=== PATIENT | male | born 1960 | race African-American/Black ===

== ENCOUNTER 2018-09-20 15:45 | Inpatient (IN) | payer SELFPAY ==
--- NOTE | 2018-09-20 19:05 | HP ---
TIME OF SERVICE: 1700 hours. PRIMARY CARE PHYSICIAN: Dr. Kristopher Ahumada. CHIEF COMPLAINT: "I can't pee." HISTORY OF PRESENT ILLNESS: Mr. Carr is a 58-year-old male with history of BPH, diabetes mellitus type 2. He was seen here in the emergency department 2 to 2-1/2 weeks ago for urinary retention. At that time, a Cope catheter was placed and he was sent out with a leg bag. He followed with the [facility] urologist about 5 days later; at which time, he was on Flomax and the catheter was removed. He was sent home. Since that time, the patient has had increasing problems with urinating. His urine has remained blood-tinged and ultimately could not pee today and developed lower abdominal pain. Came to the emergency department for evaluation. He denies any fevers or chills. No chest pain or shortness of breath. No nausea or vomiting. He was initially placed on antibiotics for the first 10 days with Cipro and subsequently he has been on Bactrim, he thinks. Workup in the ER today showed a creatinine of 9.96 with a BUN of 96. In the initial ER prior to transfer, his creatinine was 15.10. There are no other current complaints. PAST MEDICAL HISTORY: 1. BPH. 2. Diabetes mellitus, type 2. PAST SURGICAL HISTORY: None. MEDICATIONS: 1. Januvia. 2. Flomax. 3. Dutasteride. 4. Multivitamin. 5. Docusate. 6. Cipro. 7. Bactrim. ALLERGIES: PENICILLIN. FAMILY HISTORY: Negative for clotting or bleeding disorder. No immune dysfunction. SOCIAL HISTORY: Negative habits x3. REVIEW OF SYSTEMS: All systems reviewed and negative except as stated in the HPI. PHYSICAL EXAMINATION: VITAL SIGNS: Temperature 97.5, pulse 114, blood pressure 134/81, respiratory rate 16, and saturating 100% on room air. GENERAL: He is awake. He is alert. He is oriented x3. Well developed, well nourished, male, who appears to be in no distress. HEENT: Normocephalic and atraumatic. Pupils are equal, round, reactive to light bilaterally. Mucous membranes are moist. No visible lesion. No thrush. NECK: Supple. There is no lymphadenopathy, JVD, or thyromegaly. No carotid upstroke. There are no bruits. LUNGS: Clear. No wheezes, rales, or rhonchi. Good air movement. Symmetric chest excursion. CARDIOVASCULAR: Normal S1 and S2. No S3 or S4. No audible murmurs. ABDOMEN: Soft, nontender, nondistended. No suprapubic tenderness. No CVA tenderness. SKIN: Warm, moist, well perfused. There are no rash or lesions. EXTREMITIES: No cyanosis or clubbing. No edema. MUSCULOSKELETAL: Normal to inspection. Large joints appear normal. There is no evidence of inflammation or palpable effusions. NEUROLOGIC: Cranial nerves 2 through 12 are grossly intact. No focal neurologic deficits. LABORATORY DATA: Sodium 138, potassium 5.7, down from 6.6, chloride 105, bicarb 18, BUN 96, creatinine 9.96, down from 15.10, glucose 182, and calcium 103. Liver function normal. CBC showed a white count 11.3 with normal differential, hemoglobin 7.4, platelet count is 249,000. ASSESSMENT AND PLAN: 1. Benign prostatic hyperplasia with outlet obstruction. 2. Acute kidney injury secondary to post-renal obstruction. 3. Diabetes mellitus, type 2. 4. Hyperkalemia, improved with calcium chloride and bicarbonate and insulin glucose. I have notify, Dr. Velez of the admission. We will continue to monitor potassium closely. We will continue the Cope catheter Urology to evaluate in the morning. We will continue to hold the Januvia at present. We will use a sliding scale insulin, put him on a diabetic diet. We are going to let him eat. Job ID: [id number]
[2018-09-20 19:14] VITALS: BMI 25.4
[2018-09-20] MEDS ORDERED: Dextrose 50% Abboject 50 ML SYRINGE SLOW IVP PRN (19:25)
[2018-09-20] MEDS ORDERED: Sodium Chloride 0.9% 1,000 ML IV SCH (19:25)
[2018-09-20] MEDS ORDERED: Ondansetron ODT 4 MG TAB PO PRN (19:25)
[2018-09-20] MEDS ORDERED: Ondansetron PF 4 MG/2 ML Vial IVP PRN (19:25)
[2018-09-20] MEDS ORDERED: Acetaminophen 325 MG TAB PO PRN (19:25)
[2018-09-20] MEDS ORDERED: Dextrose 5% in Water 1,000 ML IV PRN (19:25)
[2018-09-20] MEDS ORDERED: Acetaminophen 650 MG Suppository PR PRN (19:25)
[2018-09-20] MEDS: Insulin Regular 300 UNITS/3 ML VIAL SC PRN (21:13)
[2018-09-20] MEDS: Tamsulosin HCl 0.4 MG CAP PO SCH (21:14)
[2018-09-20] MEDS: Sodium Bicarbonate 75 MEQ in Sodium Chloride 0.45% 1,000 ML IV SCH (21:14)
--- NOTE | 2018-09-21 01:49 | CON ---
DATE OF CONSULTATION: CONSULTING PHYSICIAN: Sarina Velez MD REQUESTING PHYSICIAN: ER physician. REASON FOR CONSULTATION: Acute kidney injury as well as severe hyperkalemia. IMPRESSION: 1. Acute kidney injury in the context of obstructive uropathy. 2. Hyperkalemia related to problem #1. 3. Metabolic acidosis. 4. Baseline chronic kidney disease, query level. 5. Benign prostatic hypertrophy. PLAN: 1. The patient will benefit from Urology consultation/intervention possibly transurethral resection of prostate. 2. Monitor the electrolyte closely especially, as the patient goes into postobstructive diuretic phase. 3. Renally dose all medications and avoid potentially nephrotoxic agents. 4. Further management will be dependent on the clinical course. 5. Hopefully, the hyperkalemia will improve so that there would not be any emergent indication for renal replacement therapy. HISTORY OF PRESENT ILLNESS: This is a 58-year-old gentleman, who presented about 2 weeks ago to ER with obstruction. Cope catheter was placed with a plan to follow up with Urology. After about a week of Cope catheterization, this was discontinued; however, ever since then, the patient has not been able to urinate. The patient continues to accumulate the urine leading up to suprapubic pain, constipation, and abdominal discomfort, for which the patient presented back to the ER and after Cope catheterization, about 2 L of urine was drained. The patient noted with a creatinine of above 15 and potassium of 6. As a result of these findings, decision has been taken to involve Renal in the management of this case. PAST MEDICAL HISTORY: According to the patient is significant for diabetes. MEDICATIONS: Reviewed and documented on [facility]. ALLERGIES: TO PENICILLIN. FAMILY HISTORY: No family history of kidney disease. SOCIAL HISTORY: The patient denies illicit drug use, alcohol, or tobacco. REVIEW OF SYSTEMS: As documented in the body of the history. All other systems were reviewed and found not to be significantly related to present illness. PHYSICAL EXAMINATION: GENERAL: The patient was found not to be in any acute distress. Hemodynamically stable. Afebrile. HEENT: Examination unremarkable. CARDIOVASCULAR SYSTEM: First and second heart sounds were heard. RESPIRATORY SYSTEM: Clear to auscultation. DIGESTIVE SYSTEM: Revealed a benign abdomen with positive bowel sounds. EXTREMITIES: No peripheral edema. SKIN: No new bruise or rash. LYMPHATICS: No peripheral lymphadenopathy. SUMMARY: A 58-year-old gentleman who presented as a transfer from [facility] with obstructive uropathy. Thank you for this consultation. We will follow with you. Job ID: [id number]
[2018-09-21 05:45] LABS: Albumin 3.4 g/dL (3.5-5.0); Anion Gap 14 mmol/L (10-20); BUN (Urea Nitrogen) 59 mg/dL (8.4-25.7); BUN/Creatinine Ratio 10.77; Calc. Creatinine Clearance 17 mL/min (70-130); Calcium 9.8 mg/dL (7.8-10.44); Carbon Dioxide 25 mmol/L (22-29); Chloride 106 mmol/L (98-107); Estimated GFR-MDRD 13; Glucose 200 mg/dL (70-105); Phosphorus 5.3 mg/dL (2.3-4.7); Sodium 138 mmol/L (136-145)
[2018-09-21 05:50] LABS: Potassium 6.9 mmol/L (3.5-5.1)
[2018-09-21] MEDS ORDERED: Calcium Gluconate 4.6 MEQ in Sodium Chloride 0.9% 100 ML IVPB SCH (06:05)
[2018-09-21 06:36] LABS: Elliptocytes SLIGHT = 2-5 cells (100X) (0-1/hpf); Eosinophils 1 % (0-10); Hemoglobin 9.8 g/dL (14.0-18.0); Lymphocytes 5 % (21-51); MDiff Complete? YES; Mean Corpuscular HGB CONC 33.3 g/dL (32.0-36.0); Mean Corpuscular Hemoglobin 29.5 pg (27.0-31.0); Mean Corpuscular Volume 88.7 fL (78.0-98.0); Mean Platelet Volume 8.5 fL (7.4-10.4); Monocytes 16 % (0-10); Neutrophil 78 % (42-75); Platelet Count 253 thou/uL (130-400); RBC Distribution Width 12.6 % (11.5-14.5); Red Blood Cell (RBC) Count 3.31 mill/uL (4.70-6.10); Schistocytes SLIGHT = 2-5 cells (100X) (0-1/hpf); White Blood Cell (WBC) Count 11.1 thou/uL (4.8-10.8)
[2018-09-21] MEDS: Dutasteride 0.5 MG CAP PO SCH (09:40)
[2018-09-21 11:36] LABS: Potassium 6.5 mmol/L (3.5-5.1)
[2018-09-21 12:25] LABS: Potassium 5.6 mmol/L (3.5-5.1)
--- NOTE | 2018-09-21 13:25 | PDOC.PN ---
- Subjective Encounter Start Date: 09/21/18 Encounter Start Time: 11:00 pt feeling better now, earlier love stopped draining, flushed by nrses, increased blood in urine. Urology following No F/c, no N/V/d/c. elevated K+ this AM, Cr improving, case discussed with Dr Velez No f/c, no N/V/D/C, no CP or SOB, some dysuria All systems reviewed and neg x as above - Objective Resuscitation Status - Order Detail: 09/20/18 17:47 Resuscitation Status Routine Resuscitation Status: FULL: Full Resuscitation MAR Reviewed: Yes Vital Signs & Weight: Vital Signs (12 hours) Temp Pulse Resp BP Pulse Ox 09/21/18 12:15 98.4 F 100 16 141/70 H 99 09/21/18 08:02 98.6 F 104 H 18 145/74 H 100 09/21/18 04:00 99.6 F 112 H 18 143/74 H 99 Weight Weight 177 lb 9.6 oz I&O: 09/20/18 09/21/18 09/22/18 06:59 06:59 06:59 Intake Total 1306 Output Total 550 Balance 756 Result Diagrams: 09/21/18 05:02 09/21/18 12:00 Additional Labs: Accuchecks 09/21/18 09/20/18 09/20/18 06:18 23:54 20:37 POC Glucose 189 H 287 H 431 H Phys Exam - Physical Examination Constitutional: NAD HEENT: PERRLA, moist MMs, sclera anicteric, oral pharynx no lesions Neck: no nodes, no JVD, supple, full ROM Respiratory: no wheezing, no rales, no rhonchi Cardiovascular: RRR, no significant murmur, no rub Gastrointestinal: soft, non-tender, no distention, positive bowel sounds Musculoskeletal: no edema Neurological: non-focal, normal sensation, moves all 4 limbs Lymphatic: no nodes Psychiatric: normal affect, A&O x 3 Skin: no rash, normal turgor, cap refill <2 seconds Dx/Plan (1) BPH NOS w ur obs/LUTS Code(s): N40.1 - BENIGN PROSTATIC HYPERPLASIA WITH LOWER URINARY TRACT SYMP Status: Acute (2) Hematuria Code(s): R31.9 - HEMATURIA, UNSPECIFIED Status: Acute Qualifiers: Hematuria type: gross Qualified Code(s): R31.0 - Gross hematuria (3) HTN (hypertension) Code(s): I10 - ESSENTIAL (PRIMARY) HYPERTENSION Status: Chronic Qualifiers: Hypertension type: essential hypertension Qualified Code(s): I10 - Essential (primary) hypertension (4) DM2 (diabetes mellitus, type 2) Status: Chronic Qualifiers: Diabetes mellitus halfway insulin use: without halfway use Diabetes mellitus complication status: without complication Qualified Code(s): E11.9 - Type 2 diabetes mellitus without complications - Plan cont current plan of care * . follow up urology recs, follow up renal for SIENA due to obstruction. hyperkalemia back up today, Renal following
[2018-09-21] MEDS: Sodium Bicarbonate 75 MEQ in Sodium Chloride 0.45% 1,000 ML IV SCH (14:49)
[2018-09-21 18:54] LABS: Hemoglobin 8.8 g/dL (14.0-18.0)
[2018-09-21] MEDS: Insulin Regular 300 UNITS/3 ML VIAL SC PRN ×2 (19:02→20:41)
--- NOTE | 2018-09-21 19:46 | PRG ---
DATE OF SERVICE: 09/21/2018 SUBJECTIVE: The patient is seen and examined with no new complaints except the difficulty with emptying the bladder overnight, for which Cope catheter was exchanged. The patient is still continued with gross hematuria, noted with the following vital signs. OBJECTIVE: VITAL SIGNS: Afebrile. Temperature 98.5, pulse 98, respiratory rate of 18, O2 sat of 98% with blood pressure 138/72. HEENT: Unremarkable. CARDIOVASCULAR SYSTEM: First and second heart sounds were heard. RESPIRATORY SYSTEM: Clear to auscultation. DIGESTIVE SYSTEM: Revealed a benign abdomen with positive bowel sounds. EXTREMITIES: No peripheral edema. SKIN: No new gross rash. LYMPHATICS: No peripheral lymphadenopathy. LABORATORY INVESTIGATION: Showed a potassium of 6.9, however, a repeat came back as 5.6 and creatinine of 5.14. IMPRESSION: 1. Severe acute kidney injury in the context of obstructive uropathy. 2. Obstructive uropathy. 3. Hyperkalemia. 4. Metabolic acidosis seems to have resolved. PLAN: 1. Kayexalate treatment. 2. Repeat the potassium level later in the day. If the potassium is dropping down, we will hold off, otherwise if the potassium is still rising, the patient will undergo hemodialysis. 3. Renally dose all medications and avoid potentially nephrotoxic agents. 4. We will continue to monitor this patient's electrolyte closely and make decisions accordingly. 5. The patient will benefit from urologic intervention. Job ID: [id number]
[2018-09-21] MEDS: Tamsulosin HCl 0.4 MG CAP PO SCH (20:38)
--- NOTE | 2018-09-21 21:09 | CON ---
DATE OF CONSULTATION: 09/21/2018 TYPE OF CONSULTATION: Urology Inpatient. REASON FOR CONSULTATION: Urinary retention and gross hematuria. HISTORY OF PRESENT ILLNESS: Mr. Carr is a 58-year-old male with history of BPH with bladder outlet obstruction. I saw him as a new patient consult as an outpatient last week. He was seen in followup from the ER, at which point, a Cope catheter was placed for urinary retention. The patient was placed on Flomax. He passed a voiding trial last week in the office. He has a history of BPH and has been taking tamsulosin for a couple of years. Secondary to lack of insurance, however, he was not completely compliant with the tamsulosin. He has seen Dr. Holman in the past as well. The patient reported progressive voiding difficulties since last week. He presented to the [place] [facility] and was found to have a creatinine of 15 and was found to be in urinary retention. A coude catheter was placed at that time and he had a very large postvoid residual. He was transferred to [facility] for further evaluation. His creatinine has been trending down appropriately. Nephrology has been monitoring for postobstructive diuresis. The patient developed hematuria this morning, requiring manual irrigation of his catheter. Urology was then called for further evaluation. REVIEW OF SYSTEMS: Full 12-point review of systems was performed and is negative other than that mentioned in the HPI. PAST MEDICAL HISTORY: 1. BPH. 2. Type 2 diabetes mellitus. PAST SURGICAL HISTORY: None. MEDICATIONS: 1. Januvia. 2. Flomax. 3. Dutasteride. 4. Multivitamin. 5. Docusate. FAMILY HISTORY: Noncontributory. SOCIAL HISTORY: The patient has significant smoking history, reports he quit a couple of years ago. ALLERGIES: PENICILLIN. PHYSICAL EXAMINATION: VITAL SIGNS: Temperature 98.4, heart rate 100, respirations 16, oxygen saturation 99% on room air, and blood pressure 141/70. GENERAL: He is alert and oriented x3, in no apparent distress. HEENT: Normocephalic, atraumatic. NECK: Supple, no masses or lymphadenopathy. CARDIOVASCULAR: Regular rate and rhythm. PULMONARY: Breathing unlabored. ABDOMEN: Soft, nontender, nondistended. No masses or organomegaly. No suprapubic tenderness to palpation. No CVA tenderness. GENITOURINARY: Uncircumcised penis without concerning lesion. Scrotum and testes palpably normal. Cope catheter in place draining blood-tinged urine. EXTREMITIES: Warm and well perfused, no edema. NEUROLOGIC: No focal deficits. LABORATORY DATA: Hemoglobin 9.8, hematocrit 29.4. Sodium 138, potassium 5.6, chloride 106, bicarb 25, BUN 59, and creatinine 5.48. ASSESSMENT: A 58-year-old male with benign prostatic hyperplasia, bladder outlet obstruction, acute kidney injury secondary to bladder outlet obstruction. PLAN: The patient's kidney function is improving. His urine output is improving as well. He has significant hematuria likely secondary to BPH in the setting of recent Cope catheter placement. He reports, in [place], there was some difficulty placing the catheter. I manually irrigated his existing Cope catheter and irrigated some clot out of his bladder. I would like to exchange his catheter, so under sterile conditions, I exchanged this to a 20-Norwegian 3-way Cope catheter. I manually irrigated this and there was no residual clot within the bladder. Continuous bladder irrigation was initiated and on moderate to high rate CBI, his urine was alcantara colored. This was monitored and appeared to be clearing. Continue CBI for now. The patient will likely require a procedure for his obstructing prostate. He has a very large prostate on exam. Ideally, if his hematuria is controlled, we will work him up a little better as an outpatient and perform this as an outpatient. However, if his hematuria does not improve, he may require a cystoscopy with clot evacuation and possible TURP while he is here. I discussed this plan with the patient and he understands. Thank you for allowing me to participate in the care of this patient. Job ID: [id number]
[2018-09-21] MEDS: Sodium Bicarbonate 50 MEQ in Sodium Chloride 0.45% 1,000 ML IV SCH (21:41)
[2018-09-22 05:58] LABS: #Basophils 0.1 thou/uL (0.0-0.2); #Eosinphils 0.4 thou/uL (0.0-0.7); #Lymphocytes 2.3 thou/uL (1.20-3.40); #Monocytes 1.4 thou/uL (0.11-0.59); #Neutrophils 6.7 thou/uL (1.40-6.50); %Basophils 0.6 % (0.0-1.0); %Eosinophils 3.4 % (0.0-10.0); %Lymphocytes 21.5 % (21.0-51.0); %Monocytes 12.9 % (0.0-10.0); %Neutrophils 61.7 % (42.0-75.0); Hemoglobin 7.9 g/dL (14.0-18.0); Mean Corpuscular HGB CONC 32.2 g/dL (32.0-36.0); Mean Corpuscular Hemoglobin 29.3 pg (27.0-31.0); Mean Corpuscular Volume 91.2 fL (78.0-98.0); Mean Platelet Volume 8.2 fL (7.4-10.4); Platelet Count 252 thou/uL (130-400); RBC Distribution Width 12.6 % (11.5-14.5); Red Blood Cell (RBC) Count 2.69 mill/uL (4.70-6.10); White Blood Cell (WBC) Count 10.8 thou/uL (4.8-10.8)
[2018-09-22 06:11] LABS: Anion Gap 10 mmol/L (10-20); BUN (Urea Nitrogen) 17 mg/dL (8.4-25.7); Calc. Creatinine Clearance 91 mL/min (70-130); Calcium 8.8 mg/dL (7.8-10.44); Carbon Dioxide 28 mmol/L (22-29); Chloride 104 mmol/L (98-107); Estimated GFR-MDRD Greater than 90; Glucose 276 mg/dL (70-105); Magnesium 1.4 mg/dL (1.6-2.6); Potassium 4.4 mmol/L (3.5-5.1); Sodium 138 mmol/L (136-145)
[2018-09-22] MEDS: Dutasteride 0.5 MG CAP PO SCH (08:26)
[2018-09-22] MEDS: Insulin Regular 300 UNITS/3 ML VIAL SC PRN ×4 (09:23→21:18)
[2018-09-22] MEDS ORDERED: Magnesium 2 GM/50 ML 2 GM in Premix Bag 1 BAG IVPB SCH (11:30)
[2018-09-22] MEDS: Sodium Bicarbonate 50 MEQ in Sodium Chloride 0.45% 1,000 ML IV SCH (11:32)
--- NOTE | 2018-09-22 14:29 | PRG ---
DATE OF SERVICE: 09/22/2018 SUBJECTIVE: Overnight, the patient has been doing relatively well. He required manual Cope catheter irrigation x2 with minimal clot irrigated out. His Cope catheter has been somewhat positional. The rate of drainage varies based on his position. Yesterday, when I saw the patient, I did not realize he had a CT scan performed in [place]. This was reviewed, and at that time, his CT was performed there. The Cope catheter balloon had been inflated in his prostatic urethra. The patient reports that they manipulated the Cope catheter and then it began draining and he was transferred here. Since his Cope catheter was exchanged yesterday, he has had no lower abdominal discomfort. On the CT scan, there was a significant amount of clot within the bladder and this was irrigated out as well. His prostate is massively enlarged on CT as well. OBJECTIVE: VITAL SIGNS: Temperature 99.1, heart rate 111, respirations 14, oxygen saturation 99% on room air, blood pressure 127/71, pulse 101 to 119 over the past 10 hours. GENERAL: He is alert and oriented x3, in no apparent distress. CARDIOVASCULAR: Tachycardic, but regular. ABDOMEN: Soft, nontender/nondistended. No suprapubic fullness or tenderness to palpation. No CVA tenderness. GENITOURINARY: Three-way Cope catheter is in place, draining pink urine on moderate rate CBI. RADIOLOGY DATA: CT of abdomen and pelvis from 09/20/2018: See scan report, films reviewed. ASSESSMENT: A 58-year-old male with urinary retention, massive benign prostatic hypertrophy with bilateral obstruction, gross hematuria, acute kidney injury. PLAN: The patient's creatinine has improved. His acute kidney injury has resolved. He continues to have intermittent gross hematuria. His hemoglobin dropped down to 7.9 constituting acute blood loss anemia. He is being transfused per the Hospitalist at this point. I reviewed the patient's CT findings with him in detail. I explained his hematuria is likely secondary to the Cope trauma and inflating the balloon in the prostatic urethra. The patient's prostate volume is likely well greater than 120 gram based on estimated volume by CT. I explained that this would likely present challenges of performing traditional transurethral resection of the prostate. I have discussed other options including suprapubic prostatectomy. Given the very large size of the gland, this is likely what he will require. He may end up needing to stay in the hospital until that time and that would not likely be performed until next week, given relatively large nature of the surgery. Until then, we will continue CBI and manual irrigation of his Cope catheter as necessary and continue to monitor his H and H. Job ID: [id number] MTDD
--- NOTE | 2018-09-22 16:18 | PRG ---
DATE OF SERVICE: 09/22/2018 SUBJECTIVE: The patient was seen and examined, seems to be doing much better. There is still gross hematuria noted, with the following vital signs. OBJECTIVE: VITAL SIGNS: Afebrile, temperature 98.3, respiratory rate 16, pulse 98, and blood pressure 126/72. HEENT: As mentioned, unremarkable. CARDIOVASCULAR: First and second heart sounds were heard. RESPIRATORY: Clear to auscultation. DIGESTIVE: Revealed a benign abdomen with positive bowel sounds. EXTREMITIES: No peripheral edema. SKIN: As mentioned, no new gross rash. LYMPHATICS: No peripheral lymphadenopathy. LABORATORY INVESTIGATION: Significant for hemoglobin of 7.9. Creatinine is down to 0.92, BUN of 17, and magnesium 1.4. IMPRESSION: 1. Acute kidney injury, which has greatly improved, status post . 2. Obstructive uropathy. 3. Benign prostatic hypertrophy. 4. Hypomagnesemia. PLAN: 1. Replete magnesium. 2. Urology following the patient and I do strongly suggest having the patient undergo treatment here versus outpatient given the questionable compliance. Job ID: [id number]
[2018-09-22 19:49] LABS: Hemoglobin 9.4 g/dL (14.0-18.0)
[2018-09-22] MEDS: Tamsulosin HCl 0.4 MG CAP PO SCH (20:15)
[2018-09-23] MEDS: Sodium Bicarbonate 50 MEQ in Sodium Chloride 0.45% 1,000 ML IV SCH ×2 (00:55→17:57)
[2018-09-23 05:21] LABS: #Basophils 0.1 thou/uL (0.0-0.2); #Eosinphils 0.6 thou/uL (0.0-0.7); #Lymphocytes 2.1 thou/uL (1.20-3.40); #Monocytes 1.5 thou/uL (0.11-0.59); #Neutrophils 8.9 thou/uL (1.40-6.50); %Basophils 0.9 % (0.0-1.0); %Eosinophils 4.3 % (0.0-10.0); %Monocytes 11.4 % (0.0-10.0); %Neutrophils 67.4 % (42.0-75.0); Hemoglobin 8.6 g/dL (14.0-18.0); Mean Corpuscular HGB CONC 32.4 g/dL (32.0-36.0); Mean Corpuscular Hemoglobin 28.9 pg (27.0-31.0); Mean Corpuscular Volume 89.1 fL (78.0-98.0); Mean Platelet Volume 7.8 fL (7.4-10.4); Platelet Count 289 thou/uL (130-400); RBC Distribution Width 14.1 % (11.5-14.5); Red Blood Cell (RBC) Count 2.97 mill/uL (4.70-6.10); White Blood Cell (WBC) Count 13.2 thou/uL (4.8-10.8)
[2018-09-23 05:39] LABS: Anion Gap 9 mmol/L (10-20); BUN (Urea Nitrogen) 12 mg/dL (8.4-25.7); Calc. Creatinine Clearance 107 mL/min (70-130); Calcium 8.7 mg/dL (7.8-10.44); Carbon Dioxide 28 mmol/L (22-29); Chloride 105 mmol/L (98-107); Estimated GFR-MDRD Greater than 90; Glucose 241 mg/dL (70-105); Magnesium 1.7 mg/dL (1.6-2.6); Potassium 4.2 mmol/L (3.5-5.1); Sodium 138 mmol/L (136-145)
[2018-09-23] MEDS: Dutasteride 0.5 MG CAP PO SCH (09:57)
[2018-09-23] MEDS: Insulin Regular 300 UNITS/3 ML VIAL SC PRN ×3 (09:58→15:58)
--- NOTE | 2018-09-23 15:46 | PDOC.PN ---
- Subjective Encounter Start Date: 09/22/18 Encounter Start Time: 13:00 -: non-verbal Cr normalized. still bleeding No f/c, no N/V/D/C, no CP or SOB, some dysuria to OR soon for prostate resection if bleeding doesnt slow All systems reviewed and neg x as above - Objective Resuscitation Status - Order Detail: 09/20/18 17:47 Resuscitation Status Routine Resuscitation Status: FULL: Full Resuscitation MAR Reviewed: Yes Vital Signs & Weight: Vital Signs (12 hours) Temp Pulse Resp BP Pulse Ox 09/23/18 12:45 98.7 F 115 H 20 119/74 99 09/23/18 08:05 98.5 F 92 20 134/72 99 Weight Weight 165 lb 1.6 oz I&O: 09/22/18 09/23/18 09/24/18 06:59 06:59 06:59 Intake Total 10656 2848 Output Total 28389 [id number] [facility] -[id number] [id number] Result Diagrams: 09/23/18 04:58 09/23/18 04:58 Additional Labs: Accuchecks 09/23/18 09/23/18 09/22/18 11:20 05:42 20:43 POC Glucose 261 H 237 H 381 H 09/22/18 09/22/18 09/22/18 16:56 13:11 11:10 POC Glucose 319 H 269 H 308 H 09/21/18 16:58 POC Glucose 222 H Phys Exam - Physical Examination Constitutional: NAD HEENT: PERRLA, moist MMs, sclera anicteric, oral pharynx no lesions Neck: no nodes, no JVD, supple, full ROM Respiratory: no wheezing, no rales, no rhonchi Cardiovascular: RRR, no significant murmur, no rub Gastrointestinal: soft, non-tender, no distention, positive bowel sounds Musculoskeletal: no edema, pulses present Neurological: non-focal, normal sensation, moves all 4 limbs Lymphatic: no nodes Psychiatric: normal affect, A&O x 3 Skin: no rash, normal turgor, cap refill <2 seconds Dx/Plan (1) BPH NOS w ur obs/LUTS Code(s): N40.1 - BENIGN PROSTATIC HYPERPLASIA WITH LOWER URINARY TRACT SYMP Status: Acute (2) Hematuria Code(s): R31.9 - HEMATURIA, UNSPECIFIED Status: Acute Qualifiers: Hematuria type: gross Qualified Code(s): R31.0 - Gross hematuria (3) HTN (hypertension) Code(s): I10 - ESSENTIAL (PRIMARY) HYPERTENSION Status: Chronic Qualifiers: Hypertension type: essential hypertension Qualified Code(s): I10 - Essential (primary) hypertension (4) DM2 (diabetes mellitus, type 2) Status: Chronic Qualifiers: Diabetes mellitus fci insulin use: without termite exterminator use Diabetes mellitus complication status: without complication Qualified Code(s): E11.9 - Type 2 diabetes mellitus without complications - Plan * .
--- NOTE | 2018-09-23 15:50 | PDOC.PN ---
- Subjective Encounter Start Date: 09/23/18 Encounter Start Time: 09:00 still bleeding to OR tomorrow for prostate resection No f/c, no N/V/D/C, no CP or SOB, some dysuria All systems reviewed and neg x as above - Objective Resuscitation Status - Order Detail: 09/20/18 17:47 Resuscitation Status Routine Resuscitation Status: FULL: Full Resuscitation MAR Reviewed: Yes Vital Signs & Weight: Vital Signs (12 hours) Temp Pulse Resp BP Pulse Ox 09/23/18 15:00 98.3 F 109 H 20 129/74 98 09/23/18 12:45 98.7 F 115 H 20 119/74 99 09/23/18 08:05 98.5 F 92 20 134/72 99 Weight Weight 165 lb 1.6 oz I&O: 09/22/18 09/23/18 09/24/18 06:59 06:59 06:59 Intake Total 18621 2848 Output Total 21110 [id number] [facility] -[id number] [id number] Result Diagrams: 09/23/18 04:58 09/23/18 04:58 Additional Labs: Accuchecks 09/23/18 09/23/18 09/22/18 11:20 05:42 20:43 POC Glucose 261 H 237 H 381 H 09/22/18 09/22/18 09/22/18 16:56 13:11 11:10 POC Glucose 319 H 269 H 308 H 09/21/18 16:58 POC Glucose 222 H Phys Exam - Physical Examination Constitutional: NAD HEENT: PERRLA, moist MMs, sclera anicteric, oral pharynx no lesions Neck: no nodes, no JVD, supple, full ROM Respiratory: no wheezing, no rales, no rhonchi, clear to auscultation bilateral Cardiovascular: RRR, no significant murmur, no rub Gastrointestinal: soft, non-tender, no distention, positive bowel sounds Musculoskeletal: no edema, pulses present Neurological: non-focal, normal sensation, moves all 4 limbs Lymphatic: no nodes Psychiatric: normal affect, A&O x 3 Skin: no rash, normal turgor, cap refill <2 seconds Dx/Plan (1) BPH NOS w ur obs/LUTS Code(s): N40.1 - BENIGN PROSTATIC HYPERPLASIA WITH LOWER URINARY TRACT SYMP Status: Acute (2) Hematuria Code(s): R31.9 - HEMATURIA, UNSPECIFIED Status: Acute Qualifiers: Hematuria type: gross Qualified Code(s): R31.0 - Gross hematuria (3) HTN (hypertension) Code(s): I10 - ESSENTIAL (PRIMARY) HYPERTENSION Status: Chronic Qualifiers: Hypertension type: essential hypertension Qualified Code(s): I10 - Essential (primary) hypertension (4) DM2 (diabetes mellitus, type 2) Status: Chronic Qualifiers: Diabetes mellitus shelter insulin use: without terminal clerk use Diabetes mellitus complication status: without complication Qualified Code(s): E11.9 - Type 2 diabetes mellitus without complications - Plan * .
--- NOTE | 2018-09-23 18:30 | PRG ---
DATE OF SERVICE: 09/23/2018 SUBJECTIVE: The patient is overall doing better. His CBI is running more clear. There is less hematuria. He received a unit of packed red blood cells yesterday. He denies any pain. No other complaints. OBJECTIVE: VITAL SIGNS: Temperature is 98.3, pulse 109, respirations 18, blood pressure 129/74, oxygen saturation 98% on room air. GENERAL: He is alert and oriented x3, in no apparent distress. HEENT: Normocephalic, atraumatic. CARDIOVASCULAR: Tachycardic, but regular. ABDOMEN: Soft, nontender/nondistended. LUNGS: Breathing unlabored. GENITOURINARY: Three-way Cope catheter in place, draining clear urine on moderate rate CBI. EXTREMITIES: Warm and well perfused. No edema. LABORATORY DATA: Hemoglobin 8.6, hematocrit 26.5. Creatinine 0.79. ASSESSMENT: A 58-year-old male with gross hematuria, acute blood loss anemia, benign prostatic hypertrophy with bladder outlet obstruction with massive prostate enlargement. PLAN: I reviewed the patient's clinic condition with him at length. I have discussed this with the operating room. The patient is scheduled for a suprapubic prostatectomy tomorrow morning. Given the large size of his prostate, I explained that this is likely the best option to alleviate both his bladder outlet obstruction, urinary retention, and gross hematuria rather than an endoscopic procedure. He understands this. This is scheduled for tomorrow morning. We will order type and cross, 2 units of packed red blood cells, n.p.o. after midnight. Job ID: [id number]
[2018-09-23] MEDS: Tamsulosin HCl 0.4 MG CAP PO SCH (20:31)
--- NOTE | 2018-09-23 20:35 | PRG ---
DATE OF SERVICE: 09/23/2018 SUBJECTIVE: The patient was seen and examined, seems to be doing much better and noted with the following vital signs OBJECTIVE: VITAL SIGNS: Afebrile, temperature 98.5, pulse 92, respiratory rate of 20, O2 saturation of 99%, with a blood pressure of 134/72. HEENT: Examination unremarkable. Moist oral mucosa. NECK: Supple. No conjunctival injection or icterus. CARDIOVASCULAR SYSTEM: First and second heart sounds were heard. RESPIRATORY SYSTEM: Clear to auscultation. DIGESTIVE SYSTEM: Revealed a benign abdomen with positive bowel sounds. EXTREMITIES: No peripheral edema. SKIN: No new gross rash. LYMPHATICS: No peripheral lymphadenopathy. LABORATORY INVESTIGATION: Showed a white count of 13,200, hemoglobin 8.6, and creatinine down to 0.79. IMPRESSION: 1. Acute kidney injury, resolved. 2. Obstructive uropathy. Undergoing urologic treatment. 3. Anemia in the context of acute blood loss. PLAN: 1. Continue current renal supportive measures. Avoid potential nephrotoxic agents. 2. Urologic intervention is highly anticipated. Job ID: [id number]
[2018-09-24 05:47] LABS: #Basophils 0.1 thou/uL (0.0-0.2); #Eosinphils 0.5 thou/uL (0.0-0.7); #Lymphocytes 2.2 thou/uL (1.20-3.40); #Monocytes 1.3 thou/uL (0.11-0.59); #Neutrophils 7.7 thou/uL (1.40-6.50); %Eosinophils 4.6 % (0.0-10.0); %Lymphocytes 18.7 % (21.0-51.0); %Monocytes 11.3 % (0.0-10.0); %Neutrophils 64.4 % (42.0-75.0); Hemoglobin 8.4 g/dL (14.0-18.0); Mean Corpuscular HGB CONC 32.2 g/dL (32.0-36.0); Mean Corpuscular Hemoglobin 28.8 pg (27.0-31.0); Mean Corpuscular Volume 89.4 fL (78.0-98.0); Mean Platelet Volume 7.4 fL (7.4-10.4); Platelet Count 337 thou/uL (130-400); RBC Distribution Width 14.2 % (11.5-14.5); Red Blood Cell (RBC) Count 2.93 mill/uL (4.70-6.10); White Blood Cell (WBC) Count 11.9 thou/uL (4.8-10.8)
[2018-09-24 05:58] LABS: Anion Gap 10 mmol/L (10-20); BUN (Urea Nitrogen) 8 mg/dL (8.4-25.7); Calc. Creatinine Clearance 117 mL/min (70-130); Calcium 8.6 mg/dL (7.8-10.44); Carbon Dioxide 27 mmol/L (22-29); Chloride 107 mmol/L (98-107); Estimated GFR-MDRD Greater than 90; Glucose 229 mg/dL (70-105); Magnesium 1.4 mg/dL (1.6-2.6); Potassium 3.7 mmol/L (3.5-5.1); Sodium 140 mmol/L (136-145)
[2018-09-24] MEDS ORDERED: Lidocaine 1% w/Epinephrine 1:100K 30 ML VIAL ONE (07:39)
[2018-09-24] MEDS ORDERED: Sodium Chloride 0.9% 10 ML ONE ×2 (07:39→08:32)
[2018-09-24] MEDS ORDERED: CEFAZOLIN 2 GM/50 ML BAG ONE (07:47)
[2018-09-24] MEDS ORDERED: Fentanyl 250 MCG/5 ML VIAL ONE (07:49)
[2018-09-24] MEDS: Sodium Bicarbonate 50 MEQ in Sodium Chloride 0.45% 1,000 ML IV SCH ×2 (07:59→16:07)
[2018-09-24] MEDS: Dutasteride 0.5 MG CAP PO SCH (08:24)
--- NOTE | 2018-09-24 08:58 | PRG ---
DATE OF SERVICE: 09/24/2018 SUBJECTIVE: The patient was seen in preop. He is scheduled for suprapubic prostatectomy this morning. He has had ongoing hematuria. His hemoglobin was 8.4, hematocrit 26.2 as of this morning. No other complaints. OBJECTIVE: VITAL SIGNS: Temperature 99.6, pulse 99, respirations 16, oxygen saturation 98% on room air, and blood pressure 165/77. GENERAL: Alert and oriented x3, no apparent distress. CARDIOVASCULAR: Regular rate and rhythm. PULMONARY: Breathing unlabored. ABDOMEN: Soft, nontender/nondistended. GENITOURINARY: Three-way Cope catheter in place, draining blood-tinged urine on low rate CBI. ASSESSMENT: A 58-year-old male with acute blood loss anemia; acute kidney injury, now resolved; BPH with bladder outlet obstruction, had gross hematuria secondary to Cope trauma and massive BPH. PLAN: The patient continues to have hematuria. His prostate is very large, likely greater than [address] volume. The options have been discussed with the patient. After indications/risks/benefits/alternatives/possible outcomes were discussed with the patient in detail, he elects to proceed with suprapubic prostatectomy and all indicated procedures. He has 3 units of packed red blood cells on whole given his acute blood loss anemia. Right now, he is hemodynamically stable, and his H and H are stable. Job ID: [id number]
[2018-09-24] MEDS ORDERED: Magnesium 2 GM/NS 0.9% 100 ML 4 GM in Premix Bag 1 BAG IVPB SCH (09:15)
[2018-09-24] MEDS ORDERED: Magnesium Sulfate 4 GM in Sodium Chloride 0.9% 250 ML 250 ML IVPB SCH (09:30)
[2018-09-24] MEDS ORDERED: Insulin Regular 300 UNITS/3 ML VIAL ONE (09:48)
[2018-09-24] MEDS ORDERED: Promethazine HCl 25 MG/ML VIAL SLOW IVP PRN (10:40)
[2018-09-24] MEDS ORDERED: Promethazine HCl 25 MG/ML VIAL IM PRN (10:40)
[2018-09-24] MEDS ORDERED: Ondansetron HCl/PF 4 MG/2 ML Vial IVP PRN (10:40)
[2018-09-24] MEDS ORDERED: Fentanyl 100 MCG/2 ML VIAL ONE ×3 (10:45→12:08)
[2018-09-24] MEDS ORDERED: Morphine 2 MG/ML SYRINGE SLOW IVP PRN (11:51)
[2018-09-24] MEDS ORDERED: Oxybutynin 5 MG TAB PO PRN (11:54)
[2018-09-24] MEDS ORDERED: Ondansetron PF 4 MG/2 ML Vial IVP PRN (11:54)
[2018-09-24] MEDS ORDERED: CEFAZOLIN 1 GM in Sodium Chloride 0.9% 100 ML IVPB SCH (14:00)
[2018-09-24] MEDS: HYDROcodone/Acetaminophen 10/325 mg Tablet PO PRN (14:45)
--- NOTE | 2018-09-24 15:06 | PDOC.PN ---
- Subjective Encounter Start Date: 09/24/18 Encounter Start Time: 13:00 to OR this morning for prostatectomy, no complications, feeling okay No f/c, no N/V/D/C, no CP or SOB, some dysuria All systems reviewed and neg x as above - Objective Resuscitation Status - Order Detail: 09/20/18 17:47 Resuscitation Status Routine Resuscitation Status: FULL: Full Resuscitation MAR Reviewed: Yes Vital Signs & Weight: Vital Signs (12 hours) Temp Pulse Resp BP Pulse Ox 09/24/18 04:00 99.6 F 99 16 165/77 H 98 Weight Weight 165 lb 1.6 oz I&O: 09/23/18 09/24/18 09/25/18 06:59 06:59 06:59 Intake Total 2848 2210 Output Total 9371 7602 [id number] -6620 Result Diagrams: 09/24/18 05:23 09/24/18 05:23 Additional Labs: Accuchecks 09/24/18 09/24/18 09/24/18 11:43 10:39 09:46 POC Glucose 162 H 230 H 256 H 09/23/18 09/23/18 21:03 15:55 POC Glucose 258 H 406 H Phys Exam - Physical Examination Constitutional: NAD HEENT: PERRLA, moist MMs, sclera anicteric, oral pharynx no lesions Neck: no nodes, no JVD, supple, full ROM Respiratory: no wheezing, no rales, no rhonchi, clear to auscultation bilateral Cardiovascular: RRR, no significant murmur, no rub Gastrointestinal: soft, non-tender, no distention, positive bowel sounds Musculoskeletal: no edema, pulses present Neurological: non-focal, normal sensation, moves all 4 limbs Lymphatic: no nodes Psychiatric: normal affect, A&O x 3 Skin: no rash, normal turgor, cap refill <2 seconds Dx/Plan (1) BPH NOS w ur obs/LUTS Code(s): N40.1 - BENIGN PROSTATIC HYPERPLASIA WITH LOWER URINARY TRACT SYMP Status: Acute Comment: S/P prostatectomy (2) Hematuria Code(s): R31.9 - HEMATURIA, UNSPECIFIED Status: Acute Qualifiers: Hematuria type: gross Qualified Code(s): R31.0 - Gross hematuria Comment: better, CBI post op (3) HTN (hypertension) Code(s): I10 - ESSENTIAL (PRIMARY) HYPERTENSION Status: Chronic Qualifiers: Hypertension type: essential hypertension Qualified Code(s): I10 - Essential (primary) hypertension (4) DM2 (diabetes mellitus, type 2) Status: Chronic Qualifiers: Diabetes mellitus fci insulin use: without fci use Diabetes mellitus complication status: without complication Qualified Code(s): E11.9 - Type 2 diabetes mellitus without complications - Plan * .
[2018-09-24 15:46] LABS: Hemoglobin 9.8 g/dL (14.0-18.0)
--- NOTE | 2018-09-24 15:53 | OP ---
DATE OF PROCEDURE: 09/24/2018 SERVICE: Urology. ALUM MIXER: Cesar Anderson MD PREPROCEDURE DIAGNOSES: 1. Benign prostatic hypertrophy with bladder outlet obstruction, massive. 2. Gross hematuria with clot urinary retention. 3. Acute kidney injury, now resolved. 4. Acute blood loss anemia. POSTPROCEDURE DIAGNOSES: 1. Benign prostatic hypertrophy with bladder outlet obstruction, massive. 2. Gross hematuria with clot urinary retention. 3. Acute kidney injury, now resolved. 4. Acute blood loss anemia. PROCEDURE PERFORMED: Suprapubic prostatectomy. ANESTHESIA: General endotracheal anesthesia. FLUIDS: See Anesthesia record. 2 units of packed red blood cells were administered preoperatively. ESTIMATED BLOOD LOSS: 250 mL. COMPLICATIONS: None. POSTPROCEDURE STATUS: Satisfactory. INDICATIONS FOR PROCEDURE: Mr. Carr is a 58-year-old male, who has history of urinary retention dating back to 2013. He has had significant voiding difficulty. He presented to an emergency department and was found to be in urinary retention. He subsequently followed up with me in the office and passed a voiding trial. Approximately 1 week later, he once again presented in urinary retention and it was noted that he had a creatinine of 15 and a very distended bladder. He had Cope catheter trauma with the Cope inflated in his prostatic urethra at this facility. He was transferred to [facility] in [facility]. A 3-way Cope catheter was placed by wi and manual irrigation of a large amount of clot from his bladder was performed at the bedside. He continued to have intermittent gross hematuria. His estimated prostate volume on CT of the pelvis was greater than 150 grams. After indication/risks/benefits/alternatives/possible outcomes were discussed with the patient in detail, he elected to proceed with suprapubic prostatectomy and all indicative procedures. DESCRIPTION OF PROCEDURE: The patient was taken to the operating room and he was placed in the supine position after successful induction of general endotracheal anesthesia. His abdomen and genitalia were prepped and draped in the usual sterile fashion. A time-out was performed, following which a #10 blade scalpel was used to make a low midline incision from the pubic symphysis up to approximately 3 cm caudal to the umbilicus. Electrocautery was used to dissect down through the subcutaneous tissues. The rectus fascia was opened in the midline. The midline of the rectus was identified. This was opened with electrocautery. We opened the transversalis fascia over the bladder with electrocautery along its length. We took care not to enter the peritoneum. We developed a space of Retzius on the right and left lateral sides of the bladder. Rexford retractor was then placed. The Cope was placed sterilely on the field and then the bladder was backfilled with 200 mL of antibiotic irrigant and saline. We then opened the bladder in the midline. I extended the cystotomy towards the bladder neck taking care not to get too close to the bladder neck and then upward toward the dome. 2-0 Vicryl stay sutures were placed and used as traction sutures to keep the bladder open. We then placed some Ray-Tecs within the bladder and the malleable to pack the dome out of the way. The patient had a very large median lobe. His bilateral ureteral orifices were identified. 8-Bahamian pediatric feeding tubes were introduced into the ureters and a 3-0 chromic was used to suture them to the bladder mucosa to keep them out of the way. These were kept in during the entire case, so that the ureteral orifices could be readily identified. Both of them had clear efflux bilaterally. There were no mucosal lesions within the bladder. There was trabeculation, and the patient had a very thick-walled bladder. At this point, we scored the mucosa circumferentially incorporating the median lobe and all the way around the bladder neck and up anteriorly. A plane was developed between the prostatic capsule and the adenoma. We developed this plane using the index finger all the way posteriorly and circumferentially around the median lobe and then all the way into the right and left lateral lobes of the prostate as well as the anterior tissue. There were a couple of areas of connective tissue that we took down with Metzenbaum scissors and then the adenoma was completely removed. We packed two warm Ray-Tecs in the prostatic fossa and held these in for approximately 5 minutes. At this point, we removed these and evaluated for hemostasis. The ureteral orifices were intact. Our resection was well away from this area. We then performed the bladder neck reconstruction by tacking the mucosa laterally and posteriorly down to the prostatic capsule with running 2-0 chromic suture. We then ran a running 2-[address] circumferentially around the bladder neck to reconstruct it. This rendered it hemostatic. The 24-Bahamian 3-way hematuria catheter was then placed and guided with a finger down through the bladder neck up into the bladder and was filled with 30 mL of sterile water. At this point, once we confirmed hemostasis was adequate, we began closing our cystotomy. The mucosa was closed with a running 3-0 chromic suture. We ran it all the way to close about half of the cystotomy and then we placed a suprapubic catheter and placing it through the right rectus body and up through the fascia and out through a puncture incision to the right lateral side of the incision. We grasped an 18-Bahamian Cope catheter and brought it down into the abdomen. We then made a puncture cystotomy to the right lateral side of the operative cystotomy and brought the catheter through this as well. 10 mL of sterile water was placed in this balloon. We then finished our mucosal closure by completing the running 3-0 chromic suture. We then manually irrigated the bladder and there was no extravasation of fluid along the length of the cystotomy with 240 mL of fluid in the bladder. We then closed the second layer of the bladder including the detrusor and serosa with a running 2-0 Vicryl. We once again irrigated the catheters. Continuous bladder irrigation was initiated and was running clear pink at the end of the case on moderate rate CBI. Prior to closing the fascia, we placed a 10-Bahamian round drain through the left lateral abdominal wall and secured it with a 2-0 nylon drain stitch and placed this in the pelvis. The wound was copiously irrigated. The fascia was closed with two separate #1 PDS suture starting in each apex and meeting in the middle. Subcutaneous tissue was then anesthetized with 30 mL of 1% lidocaine with epinephrine. The subcutaneous tissue was irrigated once more. The skin was closed with flakita. Sterile dressings were applied. The patient tolerated the procedure well, was awoken from anesthesia, and transferred to the PACU in satisfactory condition. All sponge, needle, and instrument counts were correct x3 at the end of the case. Job ID: [id number]
[2018-09-24] MEDS: Insulin Regular 300 UNITS/3 ML VIAL SC PRN ×2 (16:08→21:12)
[2018-09-24] MEDS: Tamsulosin HCl 0.4 MG CAP PO SCH (20:11)
--- NOTE | 2018-09-24 21:37 | PRG ---
DATE OF SERVICE: 09/24/2018 SUBJECTIVE: The patient is seen and examined. OBJECTIVE: VITAL SIGNS: Noted with the following vital signs; afebrile, temperature 98.8, pulse around 40, respiratory rate 20, O2 saturation of 99%, and blood pressure 132/81. HEENT: Unremarkable. CARDIOVASCULAR SYSTEM: First and second heart sounds were heard. RESPIRATORY SYSTEM: Clear to auscultation. DIGESTIVE SYSTEM: Revealed a benign abdomen with positive bowel sound. IMPRESSION: 1. Acute kidney injury in the context of problem #2. 2. Obstructive uropathy, status post suprapubic prostatectomy. PLAN: 1. Continue to assure renal supportive measures. 2. Further management to be dependent on the clinical course. Job ID: [id number]
[2018-09-24] MEDS ORDERED: Glycopyrrolate 0.2 MG/ML 5 ML SYRINGE ONE (22:11)
[2018-09-24] MEDS ORDERED: Dexamethasone 20 MG/5 ML VIAL ONE (22:11)
[2018-09-24] MEDS ORDERED: Esmolol 100 MG/10 ML VIAL ONE (22:11)
[2018-09-24] MEDS ORDERED: Ondansetron PF 4 MG/2 ML Vial ONE (22:11)
[2018-09-24] MEDS ORDERED: PROPOFOL 200 MG/20 ML VIAL ONE (22:11)
[2018-09-24] MEDS ORDERED: Metoprolol Tartrate 5 MG/5 ML VIAL ONE (22:11)
[2018-09-24] MEDS ORDERED: Lidocaine 1% PF 5 ML VIAL ONE (22:11)
[2018-09-25] MEDS: HYDROcodone/Acetaminophen 10/325 mg Tablet PO PRN ×2 (02:04→15:16)
[2018-09-25] MEDS: Insulin Regular 300 UNITS/3 ML VIAL SC PRN ×4 (05:31→21:59)
[2018-09-25 05:57] LABS: #Basophils 0.1 thou/uL (0.0-0.2); #Eosinphils 0.2 thou/uL (0.0-0.7); #Lymphocytes 2.2 thou/uL (1.20-3.40); #Monocytes 1.8 thou/uL (0.11-0.59); #Neutrophils 10.3 thou/uL (1.40-6.50); %Basophils 0.5 % (0.0-1.0); %Eosinophils 1.2 % (0.0-10.0); %Lymphocytes 15.3 % (21.0-51.0); %Monocytes 12.5 % (0.0-10.0); %Neutrophils 70.4 % (42.0-75.0); Hemoglobin 8.7 g/dL (14.0-18.0); Mean Corpuscular HGB CONC 32.2 g/dL (32.0-36.0); Mean Corpuscular Hemoglobin 28.6 pg (27.0-31.0); Mean Corpuscular Volume 88.8 fL (78.0-98.0); Mean Platelet Volume 7.5 fL (7.4-10.4); Platelet Count 325 thou/uL (130-400); RBC Distribution Width 16.9 % (11.5-14.5); Red Blood Cell (RBC) Count 3.03 mill/uL (4.70-6.10); White Blood Cell (WBC) Count 14.6 thou/uL (4.8-10.8)
[2018-09-25 06:13] LABS: Anion Gap 7 mmol/L (10-20); BUN (Urea Nitrogen) 10 mg/dL (8.4-25.7); Calc. Creatinine Clearance 111 mL/min (70-130); Calcium 8.4 mg/dL (7.8-10.44); Carbon Dioxide 29 mmol/L (22-29); Chloride 104 mmol/L (98-107); Estimated GFR-MDRD Greater than 90; Glucose 171 mg/dL (70-105); Magnesium 1.7 mg/dL (1.6-2.6); Potassium 4.1 mmol/L (3.5-5.1); Sodium 136 mmol/L (136-145)
[2018-09-25] MEDS: Dutasteride 0.5 MG CAP PO SCH (09:02)
[2018-09-25] MEDS: Sodium Bicarbonate 50 MEQ in Sodium Chloride 0.45% 1,000 ML IV SCH (09:03)
--- NOTE | 2018-09-25 10:11 | PDOC.PN ---
- Subjective Encounter Start Date: 09/25/18 Encounter Start Time: 09:30 fdollow upfor BPH with LUTS, s/p prostatectomy. POD 1. Hgb down a gram, pain controlled. No F/c, no N/V/D/c, no CP or sOB about to get out of bed. All systems reviewed and neg x as above - Objective Resuscitation Status - Order Detail: 09/20/18 17:47 Resuscitation Status Routine Resuscitation Status: FULL: Full Resuscitation MAR Reviewed: Yes Vital Signs & Weight: Vital Signs (12 hours) Temp Pulse Resp BP Pulse Ox 09/25/18 04:00 99 F 111 H 18 134/80 98 09/24/18 23:36 98.9 F 102 H 16 125/79 99 Weight Weight 165 lb 1.6 oz I&O: 09/24/18 09/25/18 09/26/18 06:59 06:59 06:59 Intake Total 2210 2860 Output Total 7600 6621 Balance -2604 -3355 Result Diagrams: 09/25/18 05:28 09/25/18 05:28 Additional Labs: Accuchecks 09/25/18 09/24/18 09/24/18 05:27 21:11 15:39 POC Glucose 185 H 345 H 272 H 09/24/18 09/24/18 11:43 10:39 POC Glucose 162 H 230 H Phys Exam - Physical Examination Constitutional: NAD HEENT: PERRLA, moist MMs, sclera anicteric, oral pharynx no lesions Neck: no nodes, no JVD, supple, full ROM Respiratory: no wheezing, no rales, no rhonchi, clear to auscultation bilateral Cardiovascular: RRR, no significant murmur, no rub Gastrointestinal: soft, non-tender, no distention, positive bowel sounds Musculoskeletal: no edema, pulses present Neurological: non-focal, normal sensation, moves all 4 limbs Lymphatic: no nodes Psychiatric: normal affect, A&O x 3 Skin: no rash, normal turgor, cap refill <2 seconds Dx/Plan (1) BPH NOS w ur obs/LUTS Code(s): N40.1 - BENIGN PROSTATIC HYPERPLASIA WITH LOWER URINARY TRACT SYMP Status: Acute Comment: S/P prostatectomy (2) Hematuria Code(s): R31.9 - HEMATURIA, UNSPECIFIED Status: Acute Qualifiers: Hematuria type: gross Qualified Code(s): R31.0 - Gross hematuria Comment: better, CBI post op (3) HTN (hypertension) Code(s): I10 - ESSENTIAL (PRIMARY) HYPERTENSION Status: Chronic Qualifiers: Hypertension type: essential hypertension Qualified Code(s): I10 - Essential (primary) hypertension (4) DM2 (diabetes mellitus, type 2) Status: Chronic Qualifiers: Diabetes mellitus time clock repairer insulin use: without time clock repairer use Diabetes mellitus complication status: without complication Qualified Code(s): E11.9 - Type 2 diabetes mellitus without complications - Plan cont current plan of care, PT/OT, out of bed/ambulate * . catheter to remain for 10 days post op. discharge when okay with urology - pt reports he was told wednesday SIENA resolved
--- NOTE | 2018-09-25 15:32 | PRG ---
DATE OF SERVICE: 09/25/2018 SUBJECTIVE: Mr. Carr is doing well. He is status post suprapubic prostatectomy. Nursing has been able to wean his CBI. The patient has minimal pain. He passed a small amount of flatus this morning. He has been ambulating. He is tolerating his diet without nausea. No other complaints. OBJECTIVE: VITAL SIGNS: Temperature 99.3, heart rate 100s to 110s, respirations 18, oxygen saturation on room air, and blood pressure 114/74. GENERAL: He is alert and oriented x3, in no apparent distress. CARDIOVASCULAR: Tachycardic, but regular. PULMONARY: Breathing unlabored. ABDOMEN: Soft. tender to palpation. Nondistended. Sterile dressings are clean, dry, and intact. JUAN M drain with scant serosanguinous output. GENITOURINARY: Three-way Cope catheter in place, draining clear urine on moderate rate CBI. LABORATORY DATA: Hemoglobin 8.7 and hematocrit 27.0. ASSESSMENT: A 58-year-old male, postop day #1, status post suprapubic prostatectomy. PLAN: Overall, the patient is doing well. Continue to wean CBI rate. His urine is very clear now. I will expect his hemoglobin and hematocrit to stabilize. If it remains clear tomorrow morning, we will cath the urethral Cope catheter and place a suprapubic catheter to drainage. If urine remains clear, urethral Cope catheter will be removed, and when clinically appropriate and otherwise meets discharge criteria, the patient will be discharged home with the suprapubic catheter in place. Job ID: [id number]
--- NOTE | 2018-09-25 17:52 | PRG ---
DATE OF SERVICE: 09/25/2018 SUBJECTIVE: The patient was noted with the following vital signs. OBJECTIVE: VITAL SIGNS: Afebrile, temperature 99.5, pulse 107, respiratory rate 18, O2 saturation 98%, and blood pressure 130/77. HEENT: Examination unremarkable. CARDIOVASCULAR SYSTEM: First and second heart sounds were heard. RESPIRATORY SYSTEM: Clear to auscultation. DIGESTIVE SYSTEM: Revealed a benign abdomen with positive bowel sounds. EXTREMITIES: No peripheral edema. SKIN: No new gross rash. LYMPHATICS: No peripheral lymphadenopathy. LABORATORY INVESTIGATION: Showed a white count of 14,600 and hemoglobin 8.7. Chemistry showed a creatinine down to 0.76. IMPRESSION: 1. Acute kidney injury in the context of obstructive uropathy, resolved. 2. Benign prostatic hypertrophy, status post suprapubic prostatectomy. 3. Anemia. PLAN: 1. Continue current renal supportive measures. 2. Outpatient followup recommend. Job ID: [id number]
[2018-09-25] MEDS: Tamsulosin HCl 0.4 MG CAP PO SCH (20:17)
[2018-09-26] MEDS: Insulin Regular 300 UNITS/3 ML VIAL SC PRN ×4 (06:17→20:43)
[2018-09-26 06:39] LABS: #Eosinphils 0.4 thou/uL (0.0-0.7); #Lymphocytes 1.7 thou/uL (1.20-3.40); #Monocytes 1.6 thou/uL (0.11-0.59); #Neutrophils 10.9 thou/uL (1.40-6.50); %Basophils 0.3 % (0.0-1.0); %Eosinophils 2.4 % (0.0-10.0); %Lymphocytes 11.8 % (21.0-51.0); %Neutrophils 74.5 % (42.0-75.0); Hemoglobin 8.7 g/dL (14.0-18.0); Mean Corpuscular HGB CONC 31.9 g/dL (32.0-36.0); Mean Corpuscular Hemoglobin 28.6 pg (27.0-31.0); Mean Corpuscular Volume 89.7 fL (78.0-98.0); Mean Platelet Volume 7.4 fL (7.4-10.4); Platelet Count 380 thou/uL (130-400); Red Blood Cell (RBC) Count 3.02 mill/uL (4.70-6.10); White Blood Cell (WBC) Count 14.6 thou/uL (4.8-10.8)
[2018-09-26 06:59] LABS: Anion Gap 11 mmol/L (10-20); BUN (Urea Nitrogen) 10 mg/dL (8.4-25.7); Calc. Creatinine Clearance 130 mL/min (70-130); Calcium 8.6 mg/dL (7.8-10.44); Carbon Dioxide 26 mmol/L (22-29); Chloride 102 mmol/L (98-107); Estimated GFR-MDRD Greater than 90; Glucose 154 mg/dL (70-105); Magnesium 1.5 mg/dL (1.6-2.6); Potassium 3.9 mmol/L (3.5-5.1); Sodium 135 mmol/L (136-145)
[2018-09-26] MEDS: Dutasteride 0.5 MG CAP PO SCH (07:27)
--- NOTE | 2018-09-26 09:18 | PRG ---
DATE OF SERVICE: 09/26/2018 SUBJECTIVE: The patient is doing well. His H and H is now stable. He has been ambulating. He had a small bowel movement this morning. He is tolerating a diet. His CBI has been on a low rate now for nearly 24 hours. OBJECTIVE: VITAL SIGNS: Temperature 99.6, heart rate 103, respirations 16, oxygen saturation 98% on room air, blood pressure 136/76. GENERAL: He is alert and oriented x3, in no apparent distress. CARDIOVASCULAR: Tachycardic, but regular rhythm. ABDOMEN: Soft, appropriately tender to palpation, nondistended, incision clean, dry/intact. JUAN M drain with scant serosanguinous output. GENITOURINARY: Cope catheter in place with clear urine on a low rate CBI. EXTREMITIES: Warm and well perfused. No edema. LABORATORY DATA: Hemoglobin 8.7, hematocrit 27.1. ASSESSMENT: A 58-year-old male with benign prostatic hyperplasia with bladder outlet obstruction, acute kidney injury now resolved, gross hematuria, postoperative day #2 status post suprapubic prostatectomy. PLAN: The patient is doing well. His JUAN M drain output was removed. Ileus is resolving. He has minimal hematuria at this time. His urethral Cope catheter was completely capped off and his suprapubic catheter was placed to drainage. We will monitor the level of hematuria. If this worsens, he may require restarting of CBI. If not, we will remove the urethral Cope catheter. The patient will be discharged home with his suprapubic catheter in place. Job ID: [id number]
[2018-09-26] MEDS: HYDROcodone/Acetaminophen 10/325 mg Tablet PO PRN (12:52)
--- NOTE | 2018-09-26 17:37 | PDOC.PN ---
- Subjective Encounter Start Date: 09/26/18 Encounter Start Time: 17:35 Subjective: f/u for SIENA, BPH and s/p suprapubic prostatectomy POD #2. Feels -: ok overall. CBI clamped this am. Ambulating in halls. Last BM -: 72h prior. - Objective Resuscitation Status - Order Detail: 09/20/18 17:47 Resuscitation Status Routine Resuscitation Status: FULL: Full Resuscitation MAR Reviewed: Yes Vital Signs & Weight: Vital Signs (12 hours) Temp Pulse Resp BP Pulse Ox 09/26/18 15:05 99.1 F 124 H 20 112/69 98 09/26/18 11:10 99.1 F 124 H 16 117/65 99 09/26/18 08:00 98 09/26/18 07:45 99.6 F 103 H 16 136/76 98 Weight Weight 165 lb 1.6 oz I&O: 09/25/18 09/26/18 09/27/18 06:59 06:59 06:59 Intake Total 2860 2520 1320 Output Total 6635 4660 528 Balance -3805 -2149 792 Result Diagrams: 09/26/18 05:51 09/26/18 05:51 Additional Labs: Accuchecks 09/26/18 09/26/18 09/26/18 15:05 11:12 05:57 POC Glucose 325 H 260 H 181 H 09/25/18 21:22 POC Glucose 224 H Microbiology 09/20/18 21:25 Urine voided Urine Culture - Final Laboratory Tests 09/23/18 09/24/18 09/24/18 04:58 05:23 Unknown WBC 13.2 H 11.9 H Hgb 8.6 L 8.4 L 9.8 L Magnesium 09/25/18 09/26/18 05:28 05:51 WBC 14.6 H Hgb 8.7 L Magnesium 1.5 L Phys Exam - Physical Examination Constitutional: NAD HEENT: PERRLA, sclera anicteric, oral pharynx no lesions Neck: no nodes, no JVD, supple, full ROM Respiratory: no wheezing, no rales, no rhonchi, clear to auscultation bilateral S1, S2 Cardiovascular: RRR, no significant murmur, no rub, gallop +suprapubic catheter in place with alcantara urine Gastrointestinal: soft, non-tender, no distention, positive bowel sounds Musculoskeletal: no edema, pulses present Neurological: normal sensation, moves all 4 limbs Psychiatric: A&O x 3 Skin: normal turgor, cap refill <2 seconds Dx/Plan (1) SIENA (acute kidney injury) Code(s): N17.9 - ACUTE KIDNEY FAILURE, UNSPECIFIED Status: Acute Comment: Resolved after resolution of bladder outlet obstruction, serial monitoring (2) Bladder outlet obstruction Code(s): N32.0 - BLADDER-NECK OBSTRUCTION Status: Acute Comment: Resolved, s /p prostatectomy (3) BPH NOS w ur obs/LUTS Code(s): N40.1 - BENIGN PROSTATIC HYPERPLASIA WITH LOWER URINARY TRACT SYMP Status: Acute Comment: S/P prostatectomy POD #2 (4) Hematuria Code(s): R31.9 - HEMATURIA, UNSPECIFIED Status: Acute Qualifiers: Hematuria type: gross Qualified Code(s): R31.0 - Gross hematuria Comment: Improved, CBI clamped, serial monitoring (5) DM2 (diabetes mellitus, type 2) Status: Chronic Qualifiers: Diabetes mellitus machine gun mechanic insulin use: without machine gun mechanic use Diabetes mellitus complication status: without complication Qualified Code(s): E11.9 - Type 2 diabetes mellitus without complications Comment: Resume Metformin, continue ISS, ADA (6) HTN (hypertension) Code(s): I10 - ESSENTIAL (PRIMARY) HYPERTENSION Status: Chronic Qualifiers: Hypertension type: essential hypertension Qualified Code(s): I10 - Essential (primary) hypertension Comment: Labile, start low-dose Metoprolol 12.5mg BID, serial monitoring - Plan PT/OT, social staff worker, out of bed/ambulate Stable currently -: Continue SPT -: Start Metoprolol 12.5mg BID -: Resume Metformin 1000mg BID -: OOB/ambulate * .
--- NOTE | 2018-09-26 19:18 | PRG ---
DATE OF SERVICE: SUBJECTIVE: The patient is doing very well, much more ambulatory, noted with the following vital signs. OBJECTIVE: VITAL SIGNS: Afebrile, temperature 99.1; pulse respiratory rate of 20; and blood pressure 102/69. HEENT: Unremarkable. Moist oral mucosa. NECK: Supple. No conjunctival injection or icterus. CARDIOVASCULAR SYSTEM: First and second heart sounds were heard. RESPIRATORY SYSTEM: Clear to auscultation. DIGESTIVE SYSTEM: Revealed a benign abdomen with positive bowel sounds. EXTREMITIES: No peripheral edema. SKIN: No new gross rash. LYMPHATICS: No peripheral lymphadenopathy. IMPRESSION: Acute kidney injury in the context of obstructive uropathy. PLAN: Continue current renal supportive measures. Job ID: [id number]
[2018-09-26] MEDS: Metoprolol Tartrate 25 MG TAB PO SCH (20:40)
[2018-09-26] MEDS: metFORMIN 500 MG TAB PO SCH (20:40)
[2018-09-26] MEDS: Tamsulosin HCl 0.4 MG CAP PO SCH (20:41)
[2018-09-27] MEDS: Insulin Regular 300 UNITS/3 ML VIAL SC PRN ×2 (05:59→17:15)
[2018-09-27] MEDS: metFORMIN 500 MG TAB PO SCH (07:37)
[2018-09-27] MEDS: Metoprolol Tartrate 25 MG TAB PO SCH (07:37)
[2018-09-27] MEDS: Dutasteride 0.5 MG CAP PO SCH (07:37)
--- NOTE | 2018-09-27 08:58 | PRG ---
DATE OF SERVICE: 09/27/2018 SUBJECTIVE: Mr. Carr is feeling well. He is tolerating his diet and having bowel movements and passing flatus. His suprapubic catheter has been to gravity drainage without CBI for 24 hours and has had minimal hematuria. OBJECTIVE: VITAL SIGNS: Temperature 98.8, pulse 99, respirations 18, oxygen saturation 97% on room air, and blood pressure 117/73. GENERAL: He is alert, oriented x3, in no apparent distress. CARDIOVASCULAR: Regular rate and rhythm. PULMONARY: Breathing unlabored. ABDOMEN: Soft, nontender/nondistended, no masses or organomegaly, no suprapubic tenderness to palpation, no CVA tenderness. EXTREMITIES: Warm and well perfused. No edema. ASSESSMENT: A 58-year-old male with acute kidney injury, now resolved; gross hematuria; bilateral hydroureteronephrosis; benign prostatic hyperplasia with bladder outlet obstruction; postoperative day #3 status post suprapubic prostatectomy. PLAN: The patient has recovered well. His urethral Cope catheter was removed today. From a urologic standpoint, the patient can be discharged when otherwise appropriate per his primary team. He will need to be discharged home with a suprapubic catheter in place. He should be given a leg bag to use during the day when he is up and about and a large drainage bag to use at nighttime. I will put an order in for a cystogram to be performed hopefully on October 05. This will need to be scheduled prior to his discharge. He will have followup with me as scheduled as well. I appreciate hospitalist assistance in caring for this patient. Job ID: [id number]
[2018-09-27 10:43] LABS: Actual Bicarbonate (HCO3a) 24.1 mEq/L (22-28); Analyzer IN Cardio OR; Base Excess (BEa) -0.2 mEq/L (-2.0 to +3.0); CO2 Tension 37.7 mmHg (35.0-45.0); Calcium, Ionized 1.12 mmol/L (1.12-1.30); Carboxyhemoglobin (COHb) 0.3 gm% (0.0-3.0); Hemoglobin (Hb) 10.3 g/dL (14.0-18.0); O2 Tension (PaO2) 424.7 mmHg (80.0-100.0); Potassium - ABG Lab 4.17 mmol/L (3.70-5.30); pH, Arterial 7.42 (7.35-7.45)
[2018-09-27 17:29] VITALS: BP 112/69; TEMP 99.3
--- NOTE | 2018-09-27 18:08 | PRG ---
DATE OF SERVICE: 09/27/2018 SUBJECTIVE: The patient is seen and examined. Seems to be doing much better. Hemodynamically stable. Noted with the following vital signs. OBJECTIVE: VITAL SIGNS: Afebrile, temperature 99.4, pulse 109, respiratory rate of 20, O2 saturation 96%, and blood pressure 125/75. HEENT: Unremarkable. CARDIOVASCULAR SYSTEM: First and second heart sounds were heard. RESPIRATORY SYSTEM: Clear to auscultation. DIGESTIVE SYSTEM: Revealed benign abdomen. EXTREMITIES: No peripheral edema. IMPRESSION: 1. Acute kidney injury in the context of obstructive uropathy, which is much improved. 2. BPH, status post suprapubic prostatectomy. PLAN: 1. Continue renal supportive measures. 2. Further management will be dependent on the clinical course. Job ID: [id number]
--- NOTE | 2018-09-27 23:25 | DIS ---
DATE OF ADMISSION: 09/20/2018 DATE OF DISCHARGE: 09/27/2018 DISCHARGE DIAGNOSES: 1. Acute kidney injury secondary to bladder outlet obstruction, resolved. 2. Bladder outlet obstruction secondary to severe benign prostatic hyperplasia. 3. Gross hematuria, improved. 4. Diabetes mellitus type 2, stable. 5. Hypertension, chronic. 6. Benign prostatic hyperplasia, status post suprapubic prostatectomy on 09/24/2018. 7. Status post suprapubic catheter placement. CONSULTATIONS: 1. Dr. Domingo Cortez with Urology Service. 2. Dr. Sarina Velez with Nephrology Service. PERTINENT LAB AND X-RAY FINDINGS: Creatinine ranged between 0.65 to 5.48. Estimated GFR ranged between 13 to greater than 90. Calcium ranged between 8.4 to 9.8. Potassium ranged between 3.9 to 6.9. CBC showed a white blood cell count ranging between 10.8 to 14.6, hemoglobin ranged between 7.9 to 9.8. Urine culture dated 09/20/2018, showed greater than 100,000 colonies of mixed skin jeannie. CT of the abdomen and pelvis dated 09/20/2018, showed markedly enlarged prostate with urinary retention. Please see dictated report for full details. HOSPITAL COURSE: The patient was initially admitted after presenting with acute urinary retention. The patient underwent CT imaging of the abdomen and pelvis showing massive urinary retention with markedly enlarged prostate. The patient was also noted with associated acute kidney injury secondary to bladder outlet obstruction with associated hyperkalemia. The patient underwent Cope catheter insertion for decompression and evaluation by the Urology Service. Due to the patient's markedly enlarged prostate, the patient was deemed an appropriate candidate, undergoing suprapubic prostatectomy on 09/24/2018. The patient did receive 2 units of packed red blood cells preoperatively with the 3rd unit transfused during the hospital course. The patient was placed on a 3-way Cope catheter and monitored postoperatively. The patient did meet appropriate milestones postoperatively with overall improvement in quality of urine per suprapubic tube. The patient's urethral Cope catheter was subsequently removed with continuation of the suprapubic catheter at the direction of the Urology Service. The patient's overall electrolyte status stabilized with correction of the bladder outlet obstruction and renal function returned to normal as well. I have examined the patient at the time of discharge and discussed followup instructions. The patient is overall clinically stable and ready for discharge on 09/27/2018. DISCHARGE MEDICATIONS: 1. Metformin 1000 mg p.o. b.i.d. 2. Lopressor 12.5 mg p.o. b.i.d. FOLLOWUP: 1. The patient may follow up with Dr. Domingo Cortez with Urology Service. 2. The patient will also follow up with Dr. Rosita Oquendo within 7 days of discharge. CONDITION ON DISCHARGE: Stable. ACTIVITY: Ad-fabiana. DIET: ADA. SPECIAL INSTRUCTIONS: Cystogram scheduled for 10/05/2018, per Urology Service. CODE STATUS: Full. DISPOSITION: Home on TIME SPENT: Total time preparing and coordinating discharge is 35 minutes. Job ID: [id number]
== END 2018-09-27 17:30 | disposition home or self-care (01) | DRG 707 ==
LOC: ERS 15:45 → 2NO 16:54 → SURG B 09-23 12:25
PROVIDERS: ADMIT Internal Medicine Infectious Disease; ATTEND Internal Medicine Infectious Disease
PROC: 30243N1 Transfusion of Nonautologous Red Blood Cells into Central Vein, Percutaneous Approach (ICD-10-PCS; 2018-09-22)
PROC: 0VT00ZZ Resection of Prostate, Open Approach (ICD-10-PCS; principal; 2018-09-24)
PROC: 0T9B80Z Drainage of Bladder with Drainage Device, Via Natural or Artificial Opening Endoscopic (ICD-10-PCS; 2018-09-24)
DX: N40.1 Benign prostatic hyperplasia with lower urinary tract symptoms (principal); N13.8 Other obstructive and reflux uropathy; N17.9 Acute kidney failure, unspecified; E11.9 Type 2 diabetes mellitus without complications; E87.5 Hyperkalemia; Z79.84 Long term (current) use of oral hypoglycemic drugs; Z90.3 Acquired absence of stomach [part of]; R31.0 Gross hematuria; I10 Essential (primary) hypertension
CPT/HCPCS: 36415; 36416; 36430; 80048; 80069; 82805; 83735; 83970; 85025; 86850; 86900; 86901; 87086; 88307; 94760; 96360; 96361; J0690; J1100; J1815; J2001; J2405; J2704; J3010; J3475; J3490; J7050; P9016